=== PATIENT | female | born 1970 | race Two or more races ===

== ENCOUNTER 2021-02-15 14:19 | Emergency (ER) | payer OTHER ==
[~2021-02-15] VITALS: Ht 167.6 cm; Wt 81.1 kg
[2021-02-15 14:20] VITALS: BP 117/74
== END 2021-02-15 16:29 | disposition left against medical advice (07) ==
LOC: EMS 14:24
DX: M25.531 Pain in right wrist (principal); M25.532 Pain in left wrist; Z53.21 Procedure and treatment not carried out due to patient leaving prior to being seen by health care provider